=== PATIENT | male | born 1990 | race Caucasian/White ===

== ENCOUNTER 2016-09-10 02:33 | Emergency (ER) | payer SELFPAY ==
[~2016-09-10] VITALS: Ht 175.3 cm; Wt 80.0 kg
[~2016-09-10 02:33] MED LIST: CEPH-443 PO; HYDR-3498 PO
[2016-09-10 02:38] VITALS: Ht 175.3 cm; Wt 80.0 kg
[2016-09-10] MEDS ORDERED: LIDOCAINE/MYLANTA 40 ML BTL PO STA (04:49)
[2016-09-10] MEDS ORDERED: morphine 2 MG INJ IV STA (04:49)
[2016-09-10] MEDS ORDERED: SOD CHLORIDE 0.9% 1,000 ML IV STA (04:49)
[2016-09-10] MEDS ORDERED: FAMOTIDINE 20 MG TAB PO STA (04:49)
[2016-09-10] MEDS ORDERED: ONDANSETRON 4 MG INJ IV STA (04:49)
[2016-09-10] MEDS ORDERED: BELLADONNA/PHENOBARBITAL TAB PO STA (04:49)
[2016-09-10] MEDS ORDERED: PANTOPRAZOLE 40 MG INJ IV ONE (05:00)
[2016-09-10] MEDS ORDERED: MULTIVITAMINS 10 ML, THIAMINE 100 MG, FOLIC ACID 1 MG, MAGNESIUM SULFATE 2 GM in SOD CH... IV ONE (05:00)
[2016-09-10] MEDS ORDERED: LORAZEPAM 2 MG INJ IV ONE (05:00)
[2016-09-10 05:18] LABS: BASOPHIL # 0.1 10^3/ul (0.0-0.1); BASOPHILS % 1.4 % (0.0-2.0); EOSINOPHILS % 0.6 % (0.0-7.0); HEMATOCRIT 46.5 % (42.0-52.0); HEMOGLOBIN 15.6 g/dl (14.0-18.0); LYMPHOCYTES # 2.3 10^3/ul (0.8-2.9); LYMPHOCYTES % 30.8 % (15.0-51.0); MEAN CORPUSCULAR HEMOGLOBIN 29.4 pg (29.0-33.0); MEAN CORPUSCULAR HGB CONC 33.6 g/dl (32.0-37.0); MEAN CORPUSCULAR VOLUME 87.5 fl (82.0-101.0); MEAN PLATELET VOLUME 8.3 fl (7.4-10.4); MONOCYTE # 0.4 10^3/ul (0.3-0.9); MONOCYTES % 5.8 % (0.0-11.0); NEUTROPHIL # 4.5 10^3/ul (1.6-7.5); NEUTROPHILS % 61.4 % (39.0-77.0); PLATELET COUNT 324 10^3/UL (140-440); RED BLOOD COUNT 5.31 10^6/ul (4.70-6.10); RED CELL DISTRIBUTION WIDTH 12.1 % (11.5-14.5); UNCORRECTED WBC 7.4 10^3/ul (4.8-10.8); WHITE BLOOD COUNT 7.4 10^3/ul (4.8-10.8)
[2016-09-10 05:19] LABS: CONDITION 1
[2016-09-10 05:29] LABS: ALBUMIN 4.5 g/dl (3.3-4.9)
[2016-09-10 05:30] LABS: POTASSIUM 3.9 mmol/L (3.5-5.1)
[2016-09-10 05:32] LABS: ALBUMIN/GLOBULIN RATIO 1.28; BILIRUBIN,INDIRECT 0.8 mg/dl (0-1.1); BILIRUBIN,TOTAL 0.8 mg/dl (0.2-1.3); CREATININE 0.96 mg/dl (0.61-1.24)
[2016-09-10 05:33] LABS: CALCIUM 8.6 mg/dl (8.4-10.2)
--- NOTE | 2016-09-10 05:43 | RADRPT ---
PROCEDURE: CHEST - 1 VIEW CLINICAL INDICATION: 26-year-old male with chest/abdominal pain. TECHNIQUE: A single frontal AP semi-erect view of the chest was performed portably. The images we re reviewed on a PACS workstation. COMPARISON: None. FINDINGS: The cardiomediastinal silhouette has a normal appearance. There is no evidence for an infiltrate. T he pulmonary vascularity is within normal limits. There is no evidence for pneumothorax or pneumomed iastinum. The osseous structures are intact. IMPRESSION: No evidence for active cardiopulmonary disease. .Richard Stanley MD, Date Time Electronically viewed and signed by .Richard Stanley MD, on 09/10/2016 05:43 .Greg/
[2016-09-10 05:44] LABS: TROPONIN-I 0.106 ng/ml (0.00-0.12)
[2016-09-10] MEDS ORDERED: MAG355OR15 PO (05:45)
[2016-09-10] MEDS ORDERED: ONDA4TAB8 PO (05:45)
[2016-09-10] MEDS ORDERED: CHLO25CA9 PO (05:45)
[2016-09-10] MEDS ORDERED: FAMO20TA18 PO (05:45)
--- NOTE | 2016-09-10 05:54 | ERD ---
ER Documentation Chief Complaint Date/Time DATE: 09/10/16 TIME: 05:48 Chief Complaint N/V for 4-5 days alcoholic last drink at 2330 HPI 26-year-old man with a history of alcoholism presents with epigastric burning and pain similar to previous episodes with multiple episodes of clear nonbloody nonbilious emesis over the last 4-5 days. He admits to drinking daily for the last few weeks last drink was last night. Patient denies melena or blood per rectum, no suicidal homicidal ideation, no fevers or chills, no chest pain or shortness of breath. ROS All systems reviewed and are negative except as per history of present illness. Medications Home Meds Active Scripts Famotidine* (Famotidine*) 20 Mg Tablet, 20 MG PO DAILY, #30 TAB Prov:SARAH CATALAN MD 09/10/16 Mag Hydrox/Al Hydrox/Simeth (Maalox Plus X-Strength Susp) 355 Ml Oral.susp, 2 TSP PO TID for PAIN, #24 OZ Prov:SARAH CATALAN MD 09/10/16 Ondansetron Hcl* (Zofran*) 4 Mg Tablet, 4 MG PO Q8H Y for NAUSEA AND/OR VOMITING , #15 TAB Prov:SARAH CATAALN MD 09/10/16 Chlordiazepoxide* (Chlordiazepoxide*) 25 Mg Capsule, 25 MG PO Q8 Y for CONTROL WITHDRAWAL SYMPTOMS, #10 CAP Prov:SARAH CATALAN MD 09/10/16 Cephalexin* (Keflex*) 500 Mg Capsule, 500 MG PO QID for 7 Days, CAP Prov:HSEILA FATIMA MD 05/22/15 Hydrocodone Bit-Acetaminophen* (Gem*) 5-325 Mg Tab, 1 TAB PO Q6 Y for PAIN, # 14 TAB Prov:SHEILA FATIMA MD 05/22/15 Allergies Allergies: Coded Allergies: No Known Allergy (Unverified , 05/22/15) PMhx/Soc Alcoholism, gastritis Medical and Surgical Hx: pt denies Medical Hx, pt denies Surgical Hx History of Surgery: No Anesthesia Reaction: No Hx Neurological Disorder: No Hx Respiratory Disorders: No Hx Cardiac Disorders: No Hx Psychiatric Problems: No Hx Miscellaneous Medical Probl: No Hx Alcohol Use: Yes Hx Substance Use: No Hx Tobacco Use: Yes Smoking Status: Current every day smoker FmHx Family History: No diabetes Physical Exam Vitals Vital Signs Date Time Temp Pulse Resp B/P Pulse Ox O2 Delivery O2 Flow Rate FiO2 09/10/16 04:40 98.9 68 16 139/102 100 Room Air 09/10/16 02:38 98.9 86 16 156/94 97 Physical Exam GENERAL: Well-developed, well-nourished, appears dehydrated and in withdrawal HEENT: Dry mucous membranes, pink conjunctiva, no cervical spine tenderness or step-off deformities, no goiter, no jaundice or icterus, extraocular movements intact without pain. No submandibular induration, and no pharyngeal erythema NEURO: Alert and oriented 3, cranial nerves II through XII intact bilaterally, pupils equal round reactive to light, no focal deficits or facial asymmetry, sensation intact distally Strength 5/5 in upper and lower extremities bilaterally CARDIAC: Regular rate and rhythm, no murmurs rubs or gallops LUNGS: Clear bilaterally no wheezing crackles or stridor ABDOMEN: Soft nontender, no guarding, no rigidity, no rebound, no psoas sign no obturator sign. Normoactive bowel sounds SKIN: Warm and dry to touch, no abrasions, contusions, or hematomas, no lacerations, no ecchymosis, no target lesions, and without ulcers EXTREMITIES: No clubbing cyanosis or edema, calves are bilaterally symmetrical, no Homans sign, no popliteal cord sign. Distal pulses equal and bilateral PSYCH: Normal affect without agitation or irritability Result Diagram: 09/10/16 0500 09/10/16 0500 Results 24 hrs Laboratory Tests Test 09/10/16 05:00 Alanine Aminotransferase (ALT/SGPT) 74IU/L Albumin 4.5g/dl Albumin/Globulin Ratio 1.28 Alkaline Phosphatase 103IU/L Anion Gap 24 Aspartate Amino Transf (AST/SGOT) 89IU/L Basophils # 0.110^3/ul Basophils % 1.4% Blood Urea Nitrogen 20mg/dl Calcium Level 8.6mg/dl Carbon Dioxide Level 24mmol/L Chloride Level 96mmol/L Creatinine 0.96mg/dl Direct Bilirubin 0.00mg/dl Eosinophils # 0.010^3/ul Eosinophils % 0.6% Globulin 3.50g/dl Glucose Level 97mg/dl Hematocrit 46.5% Hemoglobin 15.6g/dl Indirect Bilirubin 0.8mg/dl Lipase 193U/L Lymphocytes # 2.310^3/ul Lymphocytes % 30.8% Mean Corpuscular Hemoglobin 29.4pg Mean Corpuscular Hemoglobin Concent 33.6g/dl Mean Corpuscular Volume 87.5fl Mean Platelet Volume 8.3fl Monocytes # 0.410^3/ul Monocytes % 5.8% Neutrophils # 4.510^3/ul Neutrophils % 61.4% Nucleated Red Blood Cells # 0.010^3/ul Nucleated Red Blood Cells % 0.0/100WBC Platelet Count 64548^3/UL Potassium Level 3.9mmol/L Red Blood Count 5.3110^6/ul Red Cell Distribution Width 12.1% Sodium Level 140mmol/L Total Bilirubin 0.8mg/dl Total Protein 8.0g/dl Troponin I Pending White Blood Count 7.410^3/ul Current Medications Medications (Trade) Dose Ordered Sig/Chidi Route PRN Reason Start Time Stop Time Status Last Admin Dose Admin Sodium Chloride (NS) 1,000 ml @ 1,000 mls/hr Q1H STAT IV 09/10/16 04:49 09/10/16 05:48 09/10/16 05:08 Morphine Sulfate (morphine) 2 mg ONCE STAT IV 09/10/16 04:49 09/10/16 04:51 DC 09/10/16 05:09 Ondansetron HCl (Zofran Inj) 4 mg ONCE STAT IV 09/10/16 04:49 09/10/16 04:51 DC 09/10/16 05:08 Famotidine (Pepcid) 40 mg ONCE STAT PO 09/10/16 04:49 09/10/16 04:51 DC 09/10/16 05:08 Miscellaneous Medication (Gi Cocktail (2)) 40 ml ONCE STAT PO 09/10/16 04:49 09/10/16 04:51 DC 09/10/16 05:08 Belladonna/ Phenobarbital () 2 tab ONCE STAT PO 09/10/16 04:49 09/10/16 04:51 DC 09/10/16 05:08 Pantoprazole (Protonix Iv) 40 mg ONCE ONCE IV 09/10/16 05:00 09/10/16 05:01 DC 09/10/16 05:08 Lorazepam 1 mg 1 mg ONCE ONCE IV 09/10/16 05:00 09/10/16 05:01 DC 09/10/16 05:08 Multivitamins/ Thiamine HCl/ Folic Acid/ Magnesium Sulfate/ Sodium Chloride (Mvi-12 Adult/ Vitamin B1/Folic Acid/Magnesium Sulfate/NS) 1,015.2 ml @ 500 mls/ hr Q2H2M ONCE IV 09/10/16 05:00 09/10/16 07:01 09/10/16 05:36 Procedures/MDM IV line was established patient was placed on quality assurance monitor rhythm strip revealed a sinus rhythm at about 60 bpm with upright P and T waves. Patient was afebrile. For suspected withdrawal I administered lorazepam 1 mg IV 1. Patient received 1 L normal saline intravenously as well as a liter banana bag which included thiamine, folate, and magnesium. I also administered a GI cocktail 50 cc p.o., Protonix 40 mg IV, famotidine 40 mg p.o., morphine 2 mg IV, and Zofran 4 mg IV with good effect. EKG performed, read by me: 61 bpm, normal sinus rhythm, normal axis, no acute ST segment changes, right ventricular conduction delay with a QRS duration of 108 ms, with good R-wave progression in precordial leads. Chest X-ray 1V Interpreted by me: Soft Tissue: No acute abnormalities Bones: No acute abnormalities Mediastinum/Cardiac Silhouette/Lungs: No acute abnormalities CBC and electrolytes were normal, liver function tests revealed mild transaminitis, lipase normal, troponin negative. Patient's vital signs are normal, blood pressure improved, and he feels much better. I gave him the address and phone #2 nearby alcohol detox facility and recommended he follow-up. For continued alcohol withdrawal symptoms, should they occur I prescribed chlordiazepoxide. Critical Care: Time: 37 minutes, this was time separate from other procedures. Treatments/Evaluations: Close monitoring and treatment of unstable vital signs, cardiorespiratory, and neurologic status, while maintaining tight balance of fluid, respiratory, and cardiac interventions. Differential diagnoses considered, included but not limited to acute coronary syndrome, pulmonary embolism, aortic dissection, abdominal aortic aneurysm, sepsis, stroke, meningitis, encephalitis, pneumonia, appendicitis, cholecystitis , bowel obstruction, pyelonephritis, nephrolithiasis, cystitis, as well as metabolic, hematologic, and electrolyte abnormalities. As well as abscess, cellulitis, fractures, and dislocations. Patient feels much better at this time, and vital signs are normal, symptoms have improved. I did give strict instructions to return to the ED if symptoms continue or worsen, patient will otherwise follow-up with primary care physician. Patient understood instructions and agreed to plan. Departure Diagnosis: Primary Impression: Alcoholism Additional Impressions: Alcohol withdrawal syndrome Complication of substance-induced condition: uncomplicated Qualified Code: F10.230 - Alcohol withdrawal syndrome, uncomplicated Alcoholic gastritis Chronicity: acute Gastritis bleeding: without bleeding Qualified Code: K29.20 - Acute alcoholic gastritis without hemorrhage Hypertension Hypertension type: essential hypertension Qualified Code: I10 - Essential hypertension Dehydration Condition: Good Patient Instructions: Alcohol Withdrawal, Gastritis Vs. Ulcer, Vomiting (6Y- Adult), Alcohol Abuse SARAH CATALAN MD Sep 10, 2016 05:54
[2016-09-10 07:01] VITALS: BP 126/78; PULSE 88; RESP 18; TEMP 98.1
== END 2016-09-10 07:09 | disposition home or self-care (01) ==
LOC: E/R 02:33
DX: F10.230 Alcohol dependence with withdrawal, uncomplicated (principal); K29.20 Alcoholic gastritis without bleeding; I10 Essential (primary) hypertension; E86.0 Dehydration; F17.210 Nicotine dependence, cigarettes, uncomplicated
CPT/HCPCS: 36415; 71010; 80053; 83690; 84484; 85025; 93005; 96374; 96375; 99291; C9113; J2060; J2270; J2405; J3411; J3475; J7030